=== PATIENT | female | born 1980 | race Caucasian/White ===

== ENCOUNTER 2016-08-30 13:55 | Outpatient (CLI) | payer OTHER ==
--- NOTE | 2016-08-30 16:15 | DIAGNOSTIC IMAGING REPORT ---
PROCEDURE: MG UNILATERAL DIAG-LT W/CAD INDICATION: 6 MONTH FOLLOWUP TO CONFIRM STABILITY TECHNIQUE: CC, MLO and true-lateral digital views of left breast. In addition, spot compression CC and MLO views were obtained of the upper outer left breast (region of clinical concern). Finally, high-resolution left breast ultrasound was performed (18 mHz) with limited comparison ultrasound of the right breast. COMPARISON: Compared to mammogram and left breast ultrasound 11/15/2015. FINDINGS: MAMMOGRAM: Computer-aided detection applied. Moderately dense parenchymal pattern. No evidence of mass or suspicious calcification. BREAST ULTRASOUND: Mildly heterogeneous breast parenchyma. No evidence of mass or cyst. IMPRESSION: 1. Negative left mammogram and left breast ultrasound. 2. Depending on risk factors, routine screening to begin at age 40. 3. Findings discussed with the patient and her (as requested). RESULT CODE: 1- Negative. A. A negative report should not delay biopsy if a dominant or clinically suspicious mass is present. 10-15% of cancers are not identified by x-ray. B. A negative report may reinforce clinical impression. C. Adenosis and dense breasts may obscure an underlying neoplasm. D. False positive reports average 6-10%. E.. A yearly screening mammogram is recommended. A reminder letter will be scheduled.
== END 2016-08-30 23:00 ==
LOC: MAM SRH 13:55
DX: R92.8 Other abnormal and inconclusive findings on diagnostic imaging of breast (principal)